=== PATIENT | male | born 1985 | race African-American/Black ===

== ENCOUNTER → 2018-10-08 17:48 | Outpatient (CLI) | payer OTHER, SELFPAY ==
--- NOTE | 2018-10-08 | DI.MRI.S_ITS ---
PROCEDURE: MR LUMBAR SPINE WO CON INDICATIONS: low back pain TECHNIQUE: Noncontrast sagittal T1 spin echo and T2 fast echo, sagittal STIR, axial T1 and T2 fast spin echo through the lumbar spine. In cases with scoliosis, additional coronal T2 fast spin echo may be performed. COMPARISON: None. FINDINGS: Image quality: Excellent. Alignment and Curvature: There are bilateral L4 pars defects with grade 1 anterolisthesis of L4 on L5 measuring 1.2 cm. The other vertebral bodies are normally aligned. Bone Marrow: Marrow is of normal overall signal. No acute vertebral body compression fractures. Spinal Cord: Conus medullaris terminates at the L1 level. Visualized cord demonstrates normal signal and size. Paraspinous Soft Tissues: No paravertebral masses. T12-L1: No canal stenosis, foraminal stenosis, or facet arthropathy L1-L2: Normal appearance. L2-L3: Normal appearance. L3-L4: There is posterior annulus tear plus left paracentral disc bulge. There is no canal stenosis. Disc material abuts the left L4 nerve root in the left lateral recess. Facet joints are unremarkable. L4-L5: Bilateral L4 pars defects with grade 1 anterolisthesis of L4 on L5, unroofing the L4-L5 disc. There is no central canal stenosis. There is severe narrowing of the bilateral foramina with impingement upon the bilateral L4 nerve roots in the foramina. L5-S1: Bilateral facet hypertrophy. No canal stenosis. Mild right foraminal stenosis. IMPRESSION: 1. At L4-L5, there are bilateral L4 pars defects with grade 1 anterolisthesis of L4 on L5. There is no canal stenosis. There is severe bilateral foraminal narrowing with impingement of the bilateral L4 nerve roots in the foramina. 2. At L3-L4, there is posterior annulus tear plus left paracentral disc bulge. Dictated by: Chriss Angel M.D. on 10/09/2018 at 8:08 Approved by: Chriss Angel M.D. on 10/09/2018 at 8:15
== END ==
PROVIDERS: Visit Provider Physician Assistant
DX: M51.26 Other intervertebral disc displacement, lumbar region (principal); M43.16 Spondylolisthesis, lumbar region; M48.061 Spinal stenosis, lumbar region without neurogenic claudication
CPT/HCPCS: 72148; 72158

== ENCOUNTER → 2020-10-05 14:28 | Outpatient (CLI) | payer OTHER, SELFPAY ==
[2020-10-05 15:43] LABS: Add Manual Diff / Slide Review NO; Basophils Absolute Auto 0 /uL (0-100); Basophils Percent Auto 0.7 % (0-2); Eosinophils Absolute Auto 300 /uL (0-450); Eosinophils Percent Auto 4.5 % (2-4); Hemoglobin 13.4 g/dL (13.5-17.5); Lymphocytes Absolute Auto 2500 /uL (1100-4500); Lymphocytes Percent Auto 37.9 % (25-40); Mean Corpuscular HGB Conc 32.6 % (30-36); Mean Corpuscular Hemoglobin 27.4 PG (26-34); Mean Corpuscular Volume 84.1 fL (80-100); Monocytes Absolute Auto 400 /uL (0-900); Neutrophils Absolute Auto 3300 /uL (1500-7000); Neutrophils Percent Auto 50.9 % (50-75); Platelet Count 343 X10^3/uL (150-400); Red Blood Cell Count 4.88 X10^6/uL (4.5-5.9); White Blood Cell Count 6.5 X10^3/uL (4.5-11.0)
[2020-10-05 15:53] LABS: BUN Creatinine Ratio 10.8 (6-22); Blood Urea Nitrogen 11 mg/dL (9-20); Calcium 9.6 mg/dL (8.4-10.2); Carbon Dioxide 28 mmol/L (22-32); Chloride 105 mmol/L (98-107); Estimated Glomerular Filt Rate > 60.0 mL/min (>60); Glucose 111 mg/dL (70-100); HEMOLYSIS < 15 (0-50); Potassium 3.9 mmol/L (3.4-5.1); Sodium 141 mmol/L (137-145)
== END ==
PROVIDERS: Referring Provider Orthopaedic Surgery Orthopaedic Surgery of the Spine; Visit Provider Orthopaedic Surgery Orthopaedic Surgery of the Spine
DX: Z01.812 Encounter for preprocedural laboratory examination (principal)
CPT/HCPCS: 36415; 80048; 85025

== ENCOUNTER → 2020-10-13 09:12 | Outpatient (CLI) | payer OTHER, SELFPAY ==
[2020-10-13 10:28] LABS: COVID19 -Nasal RAPID Negative (Negative)
== END ==
PROVIDERS: PCP Family Medicine; Referring Provider Physician Assistant; Visit Provider Physician Assistant
DX: Z20.822 Contact with and (suspected) exposure to COVID-19 (principal); Z01.812 Encounter for preprocedural laboratory examination
CPT/HCPCS: 87635

== ENCOUNTER 2020-10-15 10:28 | Day surgery (SDC) | payer OTHER, SELFPAY ==
[2020-10-12 08:31] VITALS: BMI 34.5
[2020-10-15] VITALS (14 sets, daily range): BP systolic 101–129; BP diastolic 56–88; PULSE 69–100; RESP 10–18; TEMP 35.7–36.5; O2SAT 92–99; BMI 34.5
--- NOTE | 2020-10-15 | DI.RAD.S_ITS ---
PROCEDURE: XR LUMBAR SPINE 2-3V INDICATIONS: L4-5 TLIF TECHNIQUE: 2 views of the lumbar spine were acquired. COMPARISON: [facility], CR, XR LUMBAR SPINE 2 OR 3 VIEWS, 07/17/2020, 15:27. FINDINGS: C-arm operative images demonstrate posterior/interbody fusion at the L4-L5 level with hardware and intervertebral disc spacer in expected position. Grade 1 spondylolisthesis present involving the L4 vertebral body over L5. IMPRESSION: C-arm images demonstrating posterior/interbody fusion L4-L5. Dictated by: Terry CRAIG Interpreted: Adriane Lamar MD on 10/15/2020 at 16:59 Transcribed by: GIA on 10/15/2020 at 17:00 Approved by: Adriane Lamar M.D. on 10/15/2020 at 17:11
[2020-10-15] MEDS: LACTATED RINGERS 1,000 ML 100 ML IV ×2 (11:10→14:43)
--- NOTE | 2020-10-15 12:55 | PM.PREOP ---
Pre-operative Note COVID-19 COVID-19 status: Negative Result date/Date tested (Pos, Neg/Pending): 10/13/20 Interval Note History & Physical reviewed/Exam performed by Physician: Yes Changes to H&P: No
[2020-10-15] MEDS: CEFAZOLIN 1 GM VIAL 2 GM IV ×2 (13:45→21:24)
--- NOTE | 2020-10-15 14:09 | SUR.OPER ---
Prone on spine table, head in foam head support, padded chest and pelvic supports, gel pad at knees, lower legs supported by pillows; nipples, genitalia and toes free of pressure, arms secured on foam padded arm boards at <90 degrees abduction. Tape over blanket at thigh secured to table.
[2020-10-15] MEDS: BUPIVACAINE LIPOSOME 266 MG/20 ML VIAL INJ (14:15)
[2020-10-15] MEDS: BUPIVACAINE 0.25% W/ EPI 30 ML VIAL INJ (14:16)
--- NOTE | 2020-10-15 16:16 | SUR.PREOP ---
1300 pts donnelly-toned wedding band placed in labeled container and placed with belongings
--- NOTE | 2020-10-15 16:56 | P.OP_ITS ---
Operative Date/Time/Diagnoses Date of procedure: 10/13/20 Time of procedure: 13:00 Pre-op diagnosis: 1. L4-5 spondylolisthesis 2. L4-5 spinal stenosis Post-op diagnosis: same Procedure & Clinicians Procedure: 1. L4-5 Postero-lateral and posterior interbody fusion 2. L4-5 interbody cage placement. 3. L4-5 decompressive laminectomy with bilateral facetecomies 4. L4-5 Posterior non-segmental instrumentation 5. [place] of bone marrow from iliac crest 6. Utilization of microsurgical technique and operating microscope Same procedure as scheduled: Yes Indications: Patient has been having chronic back pain and worsening lumbar radiculopathy. Patient failed multiple conservative management with worsening pain weakness and numbness in her lower extremity. Patient has been having difficulty performing activity of daily living. After discussing risks benefits of treatment options, patient elected proceed with surgery. Surgeon: Armond Fisher Avionics Integration Engineer: Ian Christianson Click Yes if Unassisted: No Anesthesia Type: General Operative Notes Closure Type: primary Specimen(s): none sent Prosthetic devices, grafts, tissues, transplants, or devices: Globus revolve screws. Rise cage Estimated Blood Loss (mL): 200 Blood products transfused: none Procedure in detail: Patient was seen in the preoperative area. Risks and benefits of the surgery was discussed with the patient. Informed consent was obtained from the patient and placed in the chart. Surgical site was marked. Patient was taken to the operative room. General anesthesia was administered. Prophylactic antibiotic was given to the patient less than 30 min before the incision was made. Patient was placed into a prone position on the Josh table. Patient's back was then prepped and draped in the sterile fashion. Time- out was performed at this time. Using AP and lateral C-arm imaging the interval between L4-5 was identified and marked on patient's back. A 2 inch incision 2 in from midline was made on the left side first. The fascia was incised in line with skin incision. Globus MARS retractors was placed inside the incision and docked onto the L4 lamina. Using microsurgical technique and operating microscope, a L4 laminectomy and L4-5 facetectomy was performed using a Kerrison rongeur. The disc space at L4-5 was identified. And a total diskectomy was performed at L4-5 level. The endplates were decorticated using a rasp and shaver. The total diskectomy and decortication was performed at L4-5 level in order to to accomplish a L4-5 fusion. The local bone from the laminectomy and facetectomy was saved for local bone grafting. After the total diskectomy and decortication was completed, Trifecta bone graft material was combined with local bone that was harvested earlier. At this time, a separate skin is incision was made over the iliac crest. A Jamshidi needle was inserted into the iliac crest through a separate skin incision. 5 cc of bone marrow aspiration was obtained through the separate skin incision using a Jamshidi needle from the iliac crest. The bone marrow aspiration was combined with local bone and the Trifecta bone grafting material. The bone grafting material was placed into the L4-5 interbody space along with a expandable cage. The cage was expanded to its maximum height using the torque limiting screwdriver. At this time a mirror image incision was made on the right side. The fascia was incised in line with the skin incision. Globus MARS retractor was inserted and docked onto the L4-5 posterolateral gutter. Using the power drill, posterior- lateral decortication was performed at L4-5 level until bleeding cortical bone was identified. The remaining bone grafting material was placed into the L4-5 posterior lateral gutter he order to accomplish posterolateral fusion at the L4- 5 level. Using the double C-arm technique, pedicle screws were placed into the L4-5 pedicles bilaterally. This was done by placing the Jamshidi needle into the pedicles, then placing the guidewires over the Jamshidi needle, and finally haim cing the cannulated screws over the guidewires bilaterally. After the pedicle screws were placed, 2 titanium rods was locked into the heads of the pedicle screws using locking caps and torque limiting screwdriver. Thready reducers was used to reduce the patient's spondylolisthesis. Partial reduction was able to be accomplished and hardware placed was stable. After all the hardware was placed, and confirmed with AP and lateral C-arm imaging, the wound was then irrigated with sterile normal saline and packed with Ray-Al gauze for 3 min to accomplish hemostasis. After the gauze was removed the deep fascia was closed with #1 Vicryl suture. The subcutaneous layer was closed with 2-0 Vicryl. The skin was closed with skin darnell. Patient tolerated the procedure well. There were no complications. Complications: none Post-operative Condition: stable Disposition: PACU Plan for aftercare: admit to inpatient hospital
[2020-10-15] MEDS: fentaNYL 100 MCG/2 ML INJ IV ×2 (17:41→17:45)
[2020-10-15] MEDS: OXYCODONE/ACETAMINOPHEN 5/325 TABLET 1 TAB PO (17:49)
[2020-10-15] MEDS: HYDROMORPHONE 2 MG INJ IV ×2 (17:56→18:03)
[2020-10-15] MEDS: SODIUM CHLORIDE 0.9% 1,000 ML 100 ML IV (18:50)
[2020-10-15] MEDS: hydrOXYzine pamoate 25 MG CAPSULE PO (19:05)
[2020-10-15] MEDS: HYDROMORPHONE 0.5 MG INJ IV ×2 (19:05→21:24)
[2020-10-15] MEDS: OXYCODONE IR 5 MG TABLET 10 MG PO (20:49)
[2020-10-15] MEDS: SENNOSIDES 8.6 MG TABLET 17.2 MG PO (20:49)
[2020-10-15] MEDS: DOCUSATE 100 MG CAPSULE PO (20:49)
[2020-10-16 00:30] VITALS: BP 116/74; PULSE 78; RESP 18; TEMP 36.3; O2SAT 97
[2020-10-16] MEDS: OXYCODONE IR 5 MG TABLET 10 MG PO ×3 (01:02→08:21)
[2020-10-16] MEDS: HYDROMORPHONE 0.5 MG INJ IV ×2 (01:35→06:29)
[2020-10-16] MEDS: MAG HYDROX/ALUM/SIMETH 30 ML UDC PO (02:09)
[2020-10-16] MEDS: ONDANSETRON 4 MG/2 ML INJ IV (02:25)
[2020-10-16] MEDS: ACETAMINOPHEN 325 MG TABLET 650 MG PO ×2 (02:55→09:41)
[2020-10-16] MEDS: hydrOXYzine pamoate 25 MG CAPSULE PO ×2 (02:55→08:21)
[2020-10-16 05:00] VITALS: BP 112/73; PULSE 85; RESP 16; TEMP 36.2; O2SAT 97
[2020-10-16] MEDS: SODIUM CHLORIDE 0.9% 1,000 ML 100 ML IV (05:11)
[2020-10-16] MEDS: CEFAZOLIN 1 GM VIAL 2 GM IV (06:03)
[2020-10-16 06:07] LABS: Hematocrit 37.5 % (41-53); Hemoglobin 12.3 g/dL (13.5-17.5)
--- NOTE | 2020-10-16 07:35 | P.DS_ITS ---
History of Present Illness History of Present Illness Date Patient Seen: 10/16/20 Time Patient Seen: 07:35 Chief complaint: Back pain Narrative: Patient states his pain is moderate to severe. Pain is currently well controlled with pain meds. Denies fever or chills. No nausea or vomiting. Patient has his home to assist him. Discharge Providers Provider Discharge Date: 10/16/20 Primary care physician: Miguel Angel Cosby MD Consults: 10/15/20 11:07 Consult to Respiratory Therapy Evaluate & Treat Comment: Physician Instructions: Evaluate and treat 10/15/20 18:25 Consult to Occupational Therapy Evaluate & Treat Comment: Physician Instructions: Evaluate and treat Consult to Physical Therapy Evaluate & Treat Comment: Physician Instructions: Evaluate and Treat Discharge provider: Serafin Beckett PA-C Summary Hospital Course Discharge Diagnosis: 1. L4-5 spondylolisthesis 2. L4-5 spinal stenosis Hospital Course: 1. L4-5 Postero-lateral and posterior interbody fusion 2. L4-5 interbody cage placement. 3. L4-5 decompressive laminectomy with bilateral facetecomies 4. L4-5 Posterior non-segmental instrumentation 5. [place] of bone marrow from iliac crest 6. Utilization of microsurgical technique and operating microscope Same procedure as scheduled: Yes Indications: Patient has been having chronic back pain and worsening lumbar radiculopathy. Patient failed multiple conservative management with worsening pain weakness and numbness in her lower extremity. Patient has been having difficulty performing activity of daily living. After discussing risks benefits of treatment options, patient elected proceed with surgery. Surgeon: Armond Fisher Consumer Electronics Merchandiser: Ian Christianson Click Yes if Unassisted: No Anesthesia Type: General Patient admitted to the hospital for for the above-mentioned procedure. Patient consented to the same. Patient taken to the operating room yesterday October 13, 2020. Patient back in his room recovering well as in stable condition. Patient will be discharged home in stable condition today after physical therapy if safe for home environment. Exam Vital Signs (past 8 hours): - 10/16/20 00:30 10/16/20 05:00 Temperature 97.3 F L 97.1 F L Pulse Rate 78 85 Respiratory Rate 18 16 Blood Pressure 116/74 112/73 Pulse Oximetry 97 97 Oxygen Delivery Method Room Air Oxygen Flow Rate 0 Narrative Exam Narrative: Pleasant 35-year-old male walking back from the bathroom to his bed. Patient is no apparent distress. Lumbar dressing is Clean, dry, intact.. Neurovascular status is intact bilateral lower extremities. Objective Labs Result Diagrams: 10/16/20 05:43 Labs: Laboratory Results - last 24 hr 10/16/20 05:43 Hgb 12.3 L Hct 37.5 L PFSH Medical History Anxiety Depression GERD (gastroesophageal reflux disease) IBRAHIMA on CPAP Spinal stenosis of lumbosacral region Spondylolisthesis Surgical History Hx of nasal septoplasty Social History household members: spouse and children Smoking Status: Never smoker alcohol intake: current Discharge Assessment & Plan Assessment and Plan Assessment: Patient progressing as expected Plan of Treatment: Mobilize with physical therapy. Limit bending, twisting, lifting. Discharge home today in stable condition after physical therapy if safe for home environment. Discharge Plan Discharge Plan Patient Disposition: Home Discharge orders & Medications Discharge Orders: Discharge (Order); Ordered 10/16/20 Ordered By: Serafin Beckett Prescriptions: New acetaminophen 325 mg Tablet 650 mg PO Q6HR PRN (Reason: Pain, Mild (1-3)) Qty: 60 RF: 0 docusate sodium [DOK] 100 mg Capsule 100 mg PO BID Qty: 20 RF: 0 oxycodone 5 mg Tablet 10 mg PO Q3HR PRN (Reason: Pain, Severe (7-10)) Qty: 60 RF: 0 hydroxyzine pamoate 25 mg Capsule 25 mg PO Q4HR PRN (Reason: Nausea And Vomiting) Qty: 40 RF: 0 Continued pantoprazole [Protonix] 40 mg Tablet,Delayed Release (Dr/Ec) 40 mg PO DAILY RF: 0 bupropion HCl [Wellbutrin XL] 300 mg Tablet Extended Release 24 Hr 300 mg PO QAM RF: 0 Discontinued naproxen 500 mg Tablet 500 mg PO BID RF: 0 Follow up/Referrals: Armond Fisher MD [Physician] - (2 weeks) Miguel Angel Cosby MD [Primary Care Provider] - Diet/Activity/Treatments Diet: Diet as Tolerated Activity: Limit bending, twisting, lifting Skin/Wound/Dressing Care Report to your healthcare provider any signs of infection, such as:: chills, fever, increased pain, unusual drainage and unusual redness Dressing: Keep dressing clean and dry Visit Report/Discharge Packet Instructions: DI for Transforaminal Lumbar Interbody Fusion Stand Alone Forms: Surgery Discharge Discharge Data Primary Care Provider: Miguel Angel Cosby Attending Provider: Armond Fisher VTE Deep Vein Thrombosis/Pulmonary Embolism Present on Admission: No
[2020-10-16 08:16] VITALS: BP 112/67; PULSE 80; RESP 16; TEMP 36.2; O2SAT 98
[2020-10-16] MEDS: DOCUSATE 100 MG CAPSULE PO (08:21)
[2020-10-16] MEDS: buPROPion XL 150 MG TAB 300 MG PO (08:22)
[2020-10-16] MEDS: PANTOPRAZOLE DR 40 MG TABLET PO (08:22)
--- NOTE | 2020-10-16 09:31 | CM.DANOTE ---
DCP: Case received, EMR reviewed and met with patient. Introduced self and role. Was able to obtain information regarding patient's baseline activity status prior to surgery. DCP assessment completed with information currently available. Patient is a 35 year old male who admitted yesterday morning to the care of the orthopedic team. PCP: Dr. Cosby. Payer: confirmed: [employer]. Patient came to the hospital for a surgical procedure. He had a translaminar interbody fusion/laminotomy. Patient has history of spinal stenosis/spondylolisthesis. Met with patient in his room. Prior to visit, he was walking independently with P.T. in the hallways. 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 He receives care from his primary care provider at [facility]. He resides in [place] with his spouse, Sebastien, who will be able to assist him when he goes home. P: Patient is to be discharged home today with support. Bing Townsend RN/Dog Food Dough Mixer
--- NOTE | 2020-10-16 09:33 | PT.IIE ---
Current Diagnoses Spondylolisthesis, lumbar region (10/15/20) Spinal stenosis, lumbosacral region (10/15/20) Surgery Performed Operation Date: 10/15/20 13:15 Actual Procedures p L4-5 TLIF - Armond Fisher MD Medical History (Last Reviewed 10/16/20 @ 07:37 by Serafin Beckett PA-C) Anxiety Depression GERD (gastroesophageal reflux disease) IBRAHIMA on CPAP Spinal stenosis of lumbosacral region Spondylolisthesis Physical Therapy Inpatient Evaluation/Re-Eval M1 PT/OT-IP Prior Functional Status Start: 10/16/20 08:13 Freq: NEEDED Status: Active Protocol: Document 10/16/20 08:35 HH (Rec: 10/16/20 09:33 [id number]) Medical Review Prior Functional Status Medical History Reviewed Yes Diet/Fluid Consistency Regular Communication no deficits noted Mobility and Gait reports of LBP for 8 years, difficulty with prolonged sitting, standing and walking d/t pain. limited trunk movements as he stated. independent for mobility without AD Activities of Daily Living and IADL's independent for all ADLs and IADLs. Social History Household Members spouse,children Living Arrangements House Number of Floors (Floors) Two Floors Number of Stairs To Enter/Railing? 2 GAYLE to front entrance, no GAYLE from garage entrance. 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 Pt lives with and a year old and 2yo children. M2 PT-IP Current Condition Start: 10/16/20 08:13 Freq: NEEDED Status: Active Protocol: Document 10/16/20 08:35 HH (Rec: 10/16/20 09:33 [id number]) Physical Therapy Current Condition Current Condition Evaluation Date 10/16/20 Treatment Diagnosis L4-L5 TLIF Onset Date 10/15/20 Precautions Lumbar Precautions Log Roll,No Twisting,Limit Bending,Lifting Restriction of 10 lbs,Gait Belt above Incisional Area Weight Bearing Status Weight Bearing Status Weight Bear as Tolerated M3 PT-IP Subjective Start: 10/16/20 08:13 Freq: NEEDED Status: Active Protocol: Document 10/16/20 08:35 HH (Rec: 10/16/20 09:33 [id number]) Subjective Physical Therapy Visit Type Type Initial Evaluation Visit Start Time 08:35 Visit Stop Time 09:15 Total Visit Minutes 40 Number of DEPARTMENT MGR Visits 0 Physical Therapy Visit Comments Patient Comments Krista been getting in and out of the bathroom without walker Patient Goals to return home Therapy Pain Assessment Pain When Pain Assessed During Weight Bearing Pain Present Pain Present Pain Reported Location back Intensity 7 Scale Used Numeric (0 - 10) Description Aching,Acute Pain Management Techniques Timing of Activity with Medications M4 PT-IP Mobility and Gait Start: 10/16/20 08:13 Freq: NEEDED Status: Active Protocol: Document 10/16/20 08:35 HH (Rec: 10/16/20 09:33 [id number]) PT-Bed Mobility Assessment Rolling Type of Rolling Log Rolling,Roll to Right Level of Assist Independent Scooting Scooting to Edge of Bed Independent PT-Transfer Assessment Sit to and From Stand Sit to and from Stand Independent,Use of Upper Extremities Equipment Transfer Assistive Device None,Gait Belt Orthotic/Prosthetic Devices or Brace: No Transfers Transfer Destination Bed,Chair Transfer Technique Stand Step Pivot Transfer Ability Level of Assist Independent Comments Mobility Comments pt was in bed upon PT arrival. AxOx4. Pt was able to recall all post op precautions. He initially completed log roll to right and able to push off from bed to sit up after. He then stood up from bedside without AD. Pt then proceeded to amb to hallway without AD. His gait was stable with with short steps to minimize his trunk movement. Pt completed 2 laps [facility] and 2 flight of 10 steps with R rail to ascend. Pt was safe and steady and no c/o with increase pain. Pt then went back to the room and sat in bedside chair. call light placed within reach. Gait Assessment Gait Gait Assistance Required: Standby Assistance Distance (Feet) 450 Able to Maintain Weight Bearing Status Yes During Gait Assistive Devices Assistive Device Gait Belt Orthotic/Prosthetic Devices or Brace: No Gait Deviations General Gait Pattern Decreased Stride Length, Decreased Feet Clearance Factors Limiting Gait Function Factors Limiting Gait Function Decreased Activity Tolerance, Decreased Strength,Limited Range of Motion,Pain,Poor Balance Comments Gait Comments see mobility section Stair Climbing Assessment Evaluation Level of Assist On Stairs Standby Assistance Devices Stair Climbing Assistive Devices Right Railing Technique/Endurance Stair Climbing Direction Ascend and Descend Stair Climbing Technique Step Over Step Number of Steps Climbed 10 Query Text: Stair Climbing Set # Repetitions (reps) 2 PT-Balance Assessment Sitting Balance and Reactions Static Sitting Balance Ability Normal Dynamic Sitting Balance Ability Normal Standing Balance and Reactions Static Standing Balance Ability Normal Dynamic Standing Balance Ability Normal Device Used none M5 PT-IP Objective Assessments Start: 10/16/20 08:13 Freq: NEEDED Status: Active Protocol: Document 10/16/20 08:35 (Rec: 10/16/20 09:33 [id number]) Orientation Orientation/Cognition Level of Alertness Alert Orientation Name,Age,Birthday,Month,Date, Year,Day of Week,Place, Situation Language Function Ability No Deficits Noted Safety Awareness Understands Safety Issues Memory Description No Deficits Noted Gross Range of Motion Upper Extremity ROM Assessment Within Functional Limits Lower Extremity ROM Assessment Within Functional Limits Strength Upper Extremity Strength Assessment Within Functional Limits Sensation Assessment Sensation Gross Sensation WNL Muscle Tone Muscle Tone WNL Yes M6 PT-IP Treatment Start: 10/16/20 08:13 Freq: NEEDED Status: Active Protocol: Document 10/16/20 08:35 (Rec: 10/16/20 09:33 [id number]) Physical Therapy Treatment Education Education Provided Precautions,Weight Bearing Status,Post-Op Packet,Safety M7 PT-IP Assessment and Plan Start: 10/16/20 08:13 Freq: NEEDED Status: Active Protocol: Document 10/16/20 08:35 (Rec: 10/16/20 09:33 [id number]) PT Summary Assessment and Plan Potential Rehabilitation Potential Excellent Status of Condition at Evaluation Stable Summary Impairments Pain,ROM,Strength,Balance,Bed Mobility,Transfers,Gait, Activity Tolerance Progress Towards Goals Safe For Discharge Assessment Summary pt is a 35 yo male s/p POD1 L4 -5 TLIF . PLOF= IND but with pain for prolonged sitting, standing and walking. Upon assessment, pt is mostly IND without the need of AD. He is well aware of post op precautions and able to follow them. He is steady with his gait and stair climbing, therefore, he is safe to DC home with family at this point . Frequency of Treatment Frequency Of Treatment Discharge Precautions Lumbar Precautions Log Roll,No Twisting,Limit Bending,Lifting Restriction of 10 lbs,Gait Belt above Incisional Area Recommendations To Nursing Amount of Assist Needed Standby Assistance Discharge Recommendations PT Discharge Recommendations Home with Assistance Transportation Needs at Discharge Private Vehicle
--- NOTE | 2020-10-16 09:45 | OT.IP.EVAL ---
Current Diagnoses Spondylolisthesis, lumbar region (10/15/20) Spinal stenosis, lumbosacral region (10/15/20) Surgery Performed Operation Date: 10/15/20 13:15 Actual Procedures p L4-5 TLIF - Armond Fisher MD Past Medical History (Last Reviewed 10/16/20 @ 07:37 by Serafin Beckett PA-C) Anxiety Depression GERD (gastroesophageal reflux disease) Hx of nasal septoplasty IBRAHIMA on CPAP Spinal stenosis of lumbosacral region Spondylolisthesis Surgical History (Last Reviewed 10/16/20 @ 07:37 by Serafin Beckett PA-C) Hx of nasal septoplasty Occupational Therapy Inpatient Evaluation/Re-Eval M1 PT/OT-IP Prior Functional Status Start: 10/16/20 12:52 Freq: NEEDED Status: Active Protocol: Document 10/16/20 09:30 [facility] (Rec: 10/16/20 13:09 [facility] [id number]) Medical Review Prior Functional Status Medical History Reviewed Yes Diet/Fluid Consistency Regular Communication no deficits noted Mobility and Gait reports of LBP for 8 years, difficulty with prolonged sitting, standing and walking d/t pain. limited trunk movements as he stated. independent for mobility without AD Activities of Daily Living and IADL's independent for all ADLs and IADLs. Social History Household Members spouse,children Living Arrangements House Number of Floors (Floors) Two Floors Number of Stairs To Enter/Railing? 2 GAYLE to front entrance, no GAYLE from garage entrance. 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 Pt lives with and a year old and 2yo children. M2 OT-IP Current Condition Start: 10/16/20 12:52 Freq: Status: Active Protocol: Document 10/16/20 09:30 [facility] (Rec: 10/16/20 13:09 [facility] [id number]) Occupational Therapy Current Condition Current Condition Evaluation Date 10/16/20 Treatment Diagnosis S/p L4-5 TLIF Diagnosis Onset Date 10/15/20 Post Operative Precautions Lumbar Precautions Log Roll,No Twisting,Limit Bending,Lifting Restriction of 10 lbs,Gait Belt above Incisional Area M3 OT- IP Subjective and Pain Start: 10/16/20 12:52 Freq: Status: Active Protocol: Document 10/16/20 09:30 [facility] (Rec: 10/16/20 13:09 [facility] [id number]) OT- Subjective Occupational Therapy Visit Type Type Initial Evaluation Visit Start Time 09:30 Visit Stop Time 09:45 Total Visit Minutes 15 Occupational Therapy Visit Comments Patient Comments Pt agreed to do OT and get dressed. Patient/Caregiver Goals TO go home. OT Pain Assessment Pain When Pain Assessed During Mobility Pain Present Pain Present Pain Reported Location back Intensity 5 M4 OT- IP ADL's Start: 10/16/20 12:52 Freq: Status: Active Protocol: Document 10/16/20 09:30 [facility] (Rec: 10/16/20 13:09 [facility] [id number]) OT [id number] General Evaluation Self-Feeding Ability Independent OT ADL-Grooming General Evaluation Grooming Ability Independent OT ADL-Oral Care Comments Oral Care Comments Educated either spit into a cup or hinge at his hips to spit to best follow his back precautions. OT ADL-Dressing General Eval Lower Body Dressing Ability Minimal Assistance Comments OT Dressing Comments Able to issue and show pt LB dressing equipment and then able use data technician and sock aid to get dressed along with use of shoe horn to help put on his shoes. Pt just needing assist to tie his shoes. OT ADL-Toileting Comments OT Toileting Comments Pt educated to lean to wipe or director of strategic marketing order to best follow his back precautions. OT ADL-Bathing Comments OT Bathing Comments Pt states to shower at home. Suggested shower chair and to be present initially. M5 OT- IP IADL's Start: 10/16/20 12:52 Freq: Status: Active Protocol: Document 10/16/20 09:30 [facility] (Rec: 10/16/20 13:09 [facility] [id number]) OT-Instrumental Activities of Daily Living Home Safety Awareness Home Safety Comments Pt aware that he is a little groggy and that his will assist him with his needs. Meal Preparation Meal Preparation Caregiver Provides Assist Fly Setter Fly Setter Caregiver Provides Assist M6 OT- IP Functional Cognition Start: 10/16/20 12:52 Freq: Status: Active Protocol: Document 10/16/20 09:30 [facility] (Rec: 10/16/20 13:09 [facility] [id number]) Cognitive Factors Limiting Selfcare Function Cognitive Ability Level of Alertness Alert Patient Orientation Name,Place,Situation Attention Span Ability Capable of Focused Attention, Capable of Sustained Attention Ability to Follow Commands Able to Follow One Step Commands Memory Description No Deficits Noted Safety Awareness Decreased Recall of Precautions,Decreased Ability to Apply Precautions, Underestimates Need for Assistance Cognitive Comments Cognitive Assessment Comments Pt a little groggy and having difficulty to recall his back precautions and tends to be a little impulsive and needing cues to slow down. OT- Vision and Hearing OT- Hearing Assessment OT- Hearing Assessment WFL M7 OT- IP Mobility and Balance Start: 10/16/20 12:52 Freq: Status: Active Protocol: Document 10/16/20 09:30 [facility] (Rec: 10/16/20 13:09 [facility] [id number]) OT-Transfer Assessment Sit to and From Stand Sit to and from Stand Standby Assistance Transfers Transfer Ability Standby Assistance Technique Transfer Destination Chair Transfer Technique Stand Step Pivot Devices Transfer Assistive Devices Gait Belt OT- Gait Assessment Comments Gait Ability Comments SBA without a device in the room, may need FWW for distance. OT- Balance Assessment Sitting Balance and Reactions Static Sitting Balance Ability Normal Dynamic Sitting Balance Ability Good Standing Balance and Reactions Static Standing Balance Ability Fair M9 OT- IP Assessment and Plan Start: 10/16/20 12:52 Freq: Status: Active Protocol: Document 10/16/20 09:30 [facility] (Rec: 10/16/20 13:09 [facility] [id number]) OT Summary Assessment and Plan Potential Rehabilitation Potential Good Analytic Complexity at Evaluation Low Summary OT Impairments Pain,Functional Mobility, Dressing,Toileting,Bathing, Toilet Transfers,Shower Transfers Progress Towards Goals Progressing Toward Goals Assessment Summary Pt low complexity and main barriers are steps, pain and to some assist for ADL and functional mobility. Pt to go home with to assist when medically stable. Goals Dressing Goal Independent Toileting Goal Independent Bathing Goal Independent Toilet Transfer Goal Independent Shower Transfer Goal Independent Days to Meet Goals 1 Frequency of Treatment Frequency Of Treatment Once a Day Treatment Plan OT Treatment Plan ADL Training,Functional Mobility,Patient/Family Education,Discharge Planning Discharge Recommendations OT Discharge Recommendations Home with Assistance Home Equipment Needs shower chair Transportation Needs at Discharge Private Vehicle
--- NOTE | 2020-10-16 11:31 | PC.NURSE ---
Discharge note: Pt was up walking with PT this morning; did not require use of walker. Pain improved after tylenol/oxycodone and vistaril. Able to eat and drink this morning. No nausea. Suzanne ROBERTS changed dressing to back incision. Able to urinate this morning without difficulty. Ortho PA evaluated pt this morning. Discharging home. Discharge packet reviewed with patient including education re: opiate use safety, instructed to not drive while taking pain meds and hydroxyzine, reinforced activity instructions including log rolling to get out of bed and no bending/twisting and lifting. REviewed stroke signs and symptoms and to call 911 if experiencing any of those symptoms, reviewed signs and symptoms of infection. Reviewed meds to continue at home as well as to discontinue Naproxen at home. Educated re: increased risk of constipation due to pain meds and importance of adequate oral intake. Instructed pt to keep dressing clean,dry and intact. All belongings sent home with patient. Co worker driving patient home. IV discontinued by Suzanne ROBERTS. Pt wheeled to car by Suzanne Roberts in wheelchair.
== END 2020-10-16 11:45 | disposition home or self-care (01) ==
LOC: OR 10:29 → AC 10:29
PROVIDERS: PCP Family Medicine; Referring Provider Orthopaedic Surgery Adult Reconstructive Orthopaedic Surgery; Visit Provider Orthopaedic Surgery Orthopaedic Surgery of the Spine
PROC: (CPT 22633; principal; 2020-10-15 13:15)
DX: M43.16 Spondylolisthesis, lumbar region (principal); M48.061 Spinal stenosis, lumbar region without neurogenic claudication; K21.9 Gastro-esophageal reflux disease without esophagitis
CPT/HCPCS: 22633; 22853; 20939; 22840; 63047; 36415; 72100; 76000; 85014; 85018; 97161; 97165; 97535; C1776; C9290; J0690; J1100; J1170; J2250; J2405; J2704; J3010

== ENCOUNTER → 2020-12-31 08:18 | Outpatient (CLI) | payer OTHER, SELFPAY ==
[2020-10-15 18:39] VITALS: BMI 34.5
[2020-12-31 12:30] LABS: COVID19 -Nasal RAPID Negative (Negative)
== END ==
PROVIDERS: PCP Family Medicine; Referring Provider Physician Assistant; Visit Provider Physician Assistant
DX: Z20.822 Contact with and (suspected) exposure to COVID-19 (principal); Z01.812 Encounter for preprocedural laboratory examination
CPT/HCPCS: 87635

== ENCOUNTER 2021-01-01 12:25 | Day surgery (SDC) | payer OTHER, SELFPAY ==
[2020-10-15 18:39] VITALS: BMI 34.5
--- NOTE | 2021-01-01 | PATH_ITS ---
[facility] Accession Number: [id number] . 01 Material submitted: . PART A: duodenum - DUODENUM BIOPSY PART B: stomach - ANTRUM BIOPSY . 02 Diagnosis: A. Duodenum, Biopsy: Small bowel mucosa with no diagnostic abnormality. Negative for active inflammation, features of sprue, dysplasia, or malignancy. . B. Stomach, Antrum, Biopsy: Antral mucosa with mild chronic gastritis. Negative for Helicobacter by immunohistochemistry. Negative for intestinal metaplasia. Negative for dysplasia and malignancy. . V 01/07/2021 1352 Local . 02 Electronically signed: . Fabiola Alves MD, Pathologist NPI- [id number] . 01 Gross description: . Part A: DUODENUM BIOPSY: Received in formalin is 1 fragment(s) of mcgowan, soft tissue measuring 0.3 x 0.2 x 0.2 cm submitted entirely in 1 cassette(s) Part B: ANTRUM BIOPSY: Received in formalin is 1 fragment(s) of mcgowan, soft tissue measuring 0.1 x 0.1 x 0.1 cm submitted entirely in 1 cassette(s) /[facility] 01/02/2021 1437 Local . 02 Microscopic: . B. An immunohistochemical stain was performed to evaluate for Helicobacter organisms and is negative. The control stain showed appropriate reactivity. . * This test was developed and its performance characteristics determined by [facility]. It has not been cleared or approved by the U.S. Food and Drug Administration. The FDA has determined that such clearance or approval is not necessary. This test is used for clinical purposes. It should not be regarded as investigational or for research. . 02 Pathologist provided ICD-10: R10.13 . 02 CPT . 403988, 099266, D58683 Performed at: 01 [facility] [address] [place] [address], [place], [place] [id number] MD Chetan Brewer MD Phone: [phone] Performed at: [address] [place] [id number] [place], [place] [id number] MD Fabiola Alves MD Phone: [phone]
[2021-01-01 12:47] VITALS: BP 119/75; PULSE 63; RESP 16; TEMP 36.6; O2SAT 98; BMI 34.0
[2021-01-01] MEDS: SODIUM CHLORIDE 0.9% 1,000 ML 84 ML IV (13:26)
--- NOTE | 2021-01-01 13:41 | P.HP_ITS ---
History of Present Illness History of Present Illness Date Patient Seen: 01/01/21 Time Patient Seen: 13:41 Chief complaint: EGD W/POSS BX Narrative: I reviewed Dr. Dang's note from November 28. No significant changes. Patient History Medical History Anxiety Depression GERD (gastroesophageal reflux disease) IBRAHIMA on CPAP Spinal stenosis of lumbosacral region Spondylolisthesis Surgical History Hx of nasal septoplasty Family & Social History Social History: household members spouse,children Tobacco & Substance use: Smoking Status Never smoker alcohol intake current alcohol intake frequency a few times a week Substance Use Type does not use Meds Home Medications and Allergies Home Medications Medication Instructions Recorded Confirmed Type bupropion HCl 300 mg 24 hr tablet, 300 mg PO QAM 10/12/20 01/01/21 History extended release (Wellbutrin XL) pantoprazole 40 mg tablet,delayed 40 mg PO DAILY 10/12/20 01/01/21 History release (Protonix) naproxen 500 mg tablet 500 mg PO BID PRN 01/01/21 01/01/21 History Allergies Allergy/AdvReac Type Severity Reaction Status Date / Time silver Allergy Mild Skin Verified 10/15/20 10:48 irritation, topical Review of Systems Review of Systems ROS: Yes All systems reviewed with the patient and are negative except as otherwise documented Exam Vital Signs (past 8 hours): - 01/01/21 12:47 Temperature 97.9 F Pulse Rate 63 Respiratory Rate 16 Blood Pressure 119/75 Pulse Oximetry 98 Oxygen Delivery Method Room Air Const General: cooperative and comfortable Orientation: alert [facility] Head: normocephalic Ears: external ears normal Nose: external nose normal Face and sinus: normal facial exam Mouth: oral mucosae normal Eyes General: appearance normal, both eyes and all related structures Neck Neck: normal visual inspection Chest Chest: normal inspection of the chest Resp Effort & Inspection: normal respiratory effort Cardio Rate: regular rate GI Inspection: normal to inspection Skin General: no rashes or lesions noted and No jaundice Neuro General: patient alert and moves all extremities Cognition: normal cognition Speech: speech normal Extrem General: no pedal edema Psych Appearance: grossly normal Assessment & Plan Assessment & Plan narrative: 10+ years of intermittent solid food dysphagia. Refractory reflux symptoms. EGD is planned for today. Time Spent With Patient Critical Care time: I spent a total of [] minutes of critical care time on this patient's care today; this time is exclusive of procedural time.
--- NOTE | 2021-01-01 13:44 | PM.PREOP ---
Pre-operative Note COVID-19 COVID-19 status: Negative Result date/Date tested (Pos, Neg/Pending): 12/31/20 Interval Note History & Physical reviewed/Exam performed by Physician: Yes Changes to H&P: No ASA Class (for procedural sedation): II
--- NOTE | 2021-01-01 13:56 | PM.OP.EGD ---
Operative Date/Time/Diagnoses Time of procedure: 13:56 Pre-op diagnosis: Dysphagia refractory GERD Post-op diagnosis: same Procedure & Clinicians Study performed: EGD with biopsies Same procedure as scheduled: Yes Indications: Dysphagia refractory GERD Surgeon: Senthil Simms Procedure Notes SCOAP/Timeout: Done Procedure in detail: After the risks and benefits were explained, written and verbal informed consent was obtained. The patient was brought into the procedure room and placed into the left lateral decubitus position. Please see nurse tablet tester notes for sedation details. The scope was introduced into the mouth through the bite block and advanced under direct visualization to the 2nd portion of the duodenum. The scope was slowly withdrawn carefully examining the mucosa for any defects or lesions. Retroflexed views were accomplished in the stomach. The stomach was decompressed, the scope was then removed from the patient who tolerated the procedure well. Sedation minutes: 8 Complications: none Impression: 1. Duodenum: There some patchy areas of what appeared to be denuded mildly inflamed mucosa. These were in the 2nd portion. Again I suspect this may be related to naproxen induced injury but her biopsy was taken for histopathologic analysis. Otherwise no ulcers no large pathology in the duodenum 2. Stomach: Patient had streaky erythema in the antrum with some subtle erosive features probably related to ongoing NSAID therapy. No large ulcers no outlet obstruction. Retroflexed views of the LES disclosed a sliding hiatal hernia with obvious Gee's erosions. Antral biopsies were acquired for exclusion of Helicobacter pylori infection. 3. Esophagus: The GE junction was at approximately 35 cm from the incisors. The diaphragmatic hiatus was at about 39 cm from the incisors. Patient had evidence of more than 75% of the luminal circumference involved in the inflammatory process at the GE junction consistent with LA grade D erosive esophagitis. Photographs were taken. The esophagus was a little tortuous as a function of the moderate-sized hiatal hernia no additional esophageal pathology appreciated. Endoscopic diagnosis 1. LA grade D erosive esophagitis 2. 5 cm hiatal hernia 3. Gee's erosions 4. Erosive gastroduodenitis a 3 Post-procedure Plan for aftercare: 1. Await histopathology 2. Increase pantoprazole to twice daily 3. Repeat EGD in 3 months time. If at that time the esophagitis is sufficiently healed and yet there is ongoing dysphagia I think at that point midesophageal biopsies for evaluation of the eosinophil count would be quite reasonable. Disposition: PACU
[2021-01-01 14:01] VITALS: BP 122/57; PULSE 60; RESP 12; TEMP 36.2; O2SAT 99
[2021-01-01 14:07] VITALS: BP 106/47; PULSE 71; RESP 14; TEMP 36.3; O2SAT 99
[2021-01-01 14:15] VITALS: BP 98/77; PULSE 70; RESP 14; O2SAT 98
[2021-01-01 14:18] VITALS: BP 110/77; PULSE 62; RESP 14; TEMP 36.1; O2SAT 99
== END 2021-01-01 15:20 | disposition home or self-care (01) ==
PROVIDERS: PCP Family Medicine; Referring Provider Internal Medicine Gastroenterology; Visit Provider Internal Medicine Gastroenterology
PROC: 0DJ08ZZ Inspection of Upper Intestinal Tract, Via Natural or Artificial Opening Endoscopic (ICD-10-PCS; CPT 43235; principal; 2021-01-01 14:00)
DX: R13.10 Dysphagia, unspecified (principal); G47.33 Obstructive sleep apnea (adult) (pediatric); F41.9 Anxiety disorder, unspecified; F32.9 Major depressive disorder, single episode, unspecified; K44.9 Diaphragmatic hernia without obstruction or gangrene; K29.90 Gastroduodenitis, unspecified, without bleeding; K29.50 Unspecified chronic gastritis without bleeding; K21.00 Gastro-esophageal reflux disease with esophagitis, without bleeding
CPT/HCPCS: 43239; J2704

== ENCOUNTER → 2021-01-10 09:00 | Outpatient (CLI) | payer OTHER, SELFPAY ==
[2020-10-15 18:39] VITALS: BMI 34.5
--- NOTE | 2021-01-10 09:03 | DI.RAD.S_ITS ---
PROCEDURE: FL SHOULDER INJECTION MR/CT RT INDICATIONS: Primary osteoarthritis, right shoulder COMPARISON: [facility], MR, MR SHOULDER RT W CON, 01/10/2021, 10:05. TECHNIQUE: The indications, alternatives, benefits, risks, and complications of the procedure were explained to the patient. Written informed consent was obtained and placed in the chart. The shoulder was examined fluoroscopically and a site for needle placement chosen for entry into the glenohumeral joint from an anterior approach. The skin was prepped and draped in a sterile fashion, and 1% lidocaine infiltrated from skin down to joint capsule. A spinal needle was inserted into the glenohumeral joint, and a small amount of iodinated contrast media injected to confirm intra-articular placement of the needle tip. This was followed by approximately 12 mL dilute solution of a gadolinium containing MR contrast agent. The needle was removed and a dressing was applied. The patient was given postprocedural instructions and sent to the MR suite for MR imaging. FINDINGS: A single fluoroscopic spot image demonstrates intra-articular location of injected iodinated contrast. IMPRESSION: Successful fluoroscopically guided administration of dilute Gadolinium solution into the shoulder joint for MR arthrogram. Dictated by: Trey Almaguer M.D. on 01/11/2021 at 8:53 Approved by: Trey Almaguer M.D. on 01/11/2021 at 8:54
--- NOTE | 2021-01-10 09:04 | DI.MRI.S_ITS ---
PROCEDURE: MR SHOULDER RT W CON INDICATIONS: Primary osteoarthritis, right shoulder TECHNIQUE: After the administration of 12 mL of dilute intra-articular Gadolinium contrast, oblique coronal T1 and T2 spin echo with fat saturation, oblique sagittal T1 spin echo with and without fat saturation, oblique sagittal T2 fast spin echo with fat saturation, axial T1 spin echo with fat saturation through the shoulder. COMPARISON: None. FINDINGS: Image quality: Excellent. Rotator cuff: Tendinosis and low-grade articular and bursal surface partial thickness tear involving distal supraspinatus at its insertion on the humeral head is seen extending to musculotendinous junction. Distal infraspinatus tendinosis and low-grade articular surface partial-thickness tear is also noted at its insertion on the humeral head. Distal subscapularis tendinosis and low-grade intrasubstance partial-thickness tear involving superior to mid fibers are seen. No full-thickness rotator cuff tendon rupture. No rotator cuff muscle atrophy on sagittal images. Bones and bursae: No bone marrow contusions or fractures. [id number] acromioclavicular joint osteoarthritic changes are seen with downward osteophyte formation depressing the musculotendinous junction of supraspinatus. Capsule and soft tissues: There is focal area of signal abnormality, subtle contrast extension and contour irregularity involving superior anterior labrum at 12 to 1 o'clock position concerning for superior anterior labral tear. The glenohumeral ligaments appear intact. The long head of the biceps tendinosis and low-grade intrasubstance partial-thickness tear is seen. The rotator interval appears normal, without fibrosis. The coracohumeral ligament is of normal thickness. No intra-articular bodies. IMPRESSION: 1. Tendinosis and low-grade articular and bursal surface partial thickness tear involving distal supraspinatus extending to musculotendinous junction. Distal infraspinatus tendinosis and low-grade articular surface partial-thickness tear. Tendinosis and low-grade intrasubstance partial-thickness tear involving superior to mid fibers of distal subscapularis. 2. Proximal intra-articular portion of long head of biceps tendinosis and low-grade intrasubstance partial-thickness tear. 3. Mild to moderate acromioclavicular joint osteoarthritis. No fracture or dislocation. 4. Subtle signal abnormality and questionable contrast extension in superior anterior labrum at 12 to 1 o'clock position concerning for subtle superior anterior labral tear. Dictated by: Jakob Onofre M.D. on 01/10/2021 at 11:30 Approved by: Jakob Onofre M.D. on 01/10/2021 at 11:33
== END ==
PROVIDERS: PCP Family Medicine; Referring Provider Orthopaedic Surgery; Visit Provider Orthopaedic Surgery
DX: M19.011 Primary osteoarthritis, right shoulder (principal); M75.111 Incomplete rotator cuff tear or rupture of right shoulder, not specified as traumatic; S46.111A Strain of muscle, fascia and tendon of long head of biceps, right arm, initial encounter
CPT/HCPCS: 23350; 73222; 77002

== ENCOUNTER 2021-07-12 14:57 | Emergency (ER) | payer OTHER, SELFPAY ==
[2020-10-15 18:39] VITALS: BMI 34.5
[2021-07-12 15:11] VITALS: BP 131/63; PULSE 95; RESP 16; TEMP 36.4; O2SAT 98; BMI 34.7
--- NOTE | 2021-07-12 15:17 | DI.RAD.S_ITS ---
PROCEDURE: XR CHEST 1V INDICATIONS: chest pain TECHNIQUE: One view of the chest was acquired. COMPARISON: None. FINDINGS: Surgical changes and devices: None. Lungs and pleura: Lungs are clear. No pleural effusions or pneumothorax. Mediastinum: Mediastinal contours appear normal. Heart size is normal. Bones and chest wall: No suspicious bony lesions. Overlying soft tissues appear unremarkable. IMPRESSION: No acute pulmonary process. Dictated by: Adriane Lamar M.D. on 07/12/2021 at 16:09 Approved by: Adriane Lamar M.D. on 07/12/2021 at 16:10
[2021-07-12 16:02] LABS: Alanine Aminotransferase 46 IU/L (<50); Albumin 4.7 g/dL (3.5-5.0); Albumin Globulin Ratio 1.3 (1.0-2.8); Alkaline Phosphatase 61 U/L (38-126); Aspartate Aminotransferase 30 IU/L (17-59); BUN Creatinine Ratio 13.5 (6-22); Bilirubin Total 0.8 mg/dL (0.2-1.3); Blood Urea Nitrogen 13 mg/dL (9-20); Calcium 9.2 mg/dL (8.4-10.2); Carbon Dioxide 24 mmol/L (22-32); Chloride 103 mmol/L (98-107); Creatine Kinase 172 U/L (55-170); Estimated Glomerular Filt Rate > 60 mL/min (>60); Globulin 3.7 g/dL (1.7-4.1); Glucose 153 mg/dL (70-100); HEMOLYSIS < 15 (0-50); Lipase 62 U/L (23-300); Potassium 3.5 mmol/L (3.4-5.1); Sodium 139 mmol/L (137-145); Total Protein 8.4 g/dL (6.3-8.2)
[2021-07-12 16:05] LABS: Add Manual Diff / Slide Review NO; Basophils Absolute Auto 100 /uL (0-100); Basophils Percent Auto 1.1 % (0-2); Eosinophils Absolute Auto 200 /uL (0-450); Eosinophils Percent Auto 2.5 % (2-4); Hematocrit 39.2 % (41-53); Hemoglobin 13.1 g/dL (13.5-17.5); Lymphocytes Absolute Auto 3100 /uL (1100-4500); Lymphocytes Percent Auto 35.9 % (25-40); Mean Corpuscular HGB Conc 33.5 % (30-36); Mean Corpuscular Volume 77.7 fL (80-100); Monocytes Absolute Auto 500 /uL (0-900); Monocytes Percent Auto 6.2 % (3-14); Neutrophils Absolute Auto 4700 /uL (1500-7000); Neutrophils Percent Auto 54.3 % (50-75); Platelet Count 323 X10^3/uL (150-400); Red Blood Cell Count 5.04 X10^6/uL (4.5-5.9); Red Cell Distribution Width 14.5 % (11.6-14.8); White Blood Cell Count 8.7 X10^3/uL (4.5-11.0)
[2021-07-12 16:13] LABS: Troponin I < 0.012 ng/mL (0.01-0.034)
[2021-07-12 16:17] LABS: CKMB % Relative Index 0.4 % (1.5-5.0); Creatine Kinase MB 0.63 ng/mL (<2.37)
[2021-07-12 17:50] VITALS: BP 137/95; PULSE 65; RESP 16; O2SAT 99
[2021-07-12] MEDS: PANTOPRAZOLE DR 20 MG TABLET PO (18:32)
[2021-07-12] MEDS: MAG HYDROX/ALUM/SIMETH 30 ML UDC PO (18:33)
[2021-07-12] MEDS: LIDOCAINE VISCOUS 2% 15 ML SOLUTION PO (18:33)
--- NOTE | 2021-07-12 19:12 | ED.CHESTPAIN ---
HPI - Chest Pain <Rafael Marie PA-C - Last Filed: 07/12/21 20:52> General Chief Complaint: Chest Pain Stated Complaint: PAIN LEFT RIB CAGE PAIN CHEST LEFT SIDE Time Seen by Provider: 07/12/21 17:54 Mode of arrival: Family Vehicle History of Present Illness HPI narrative: This is a 36-year-old male presents to the emergency department due to left upper abdominal pain for the last 3 days. States he has a chronic history of GERD. States that it feels like a ?throbbing? pain to his left upper abdominal area. Patient has been taking his pantoprazole as prescribed. Denies any nausea, vomiting, diarrhea, chest pain, blood in the stool, shortness of breath or any other concerning signs or symptoms. Does state that he has been increasing his alcohol intake to approximately 1 large bottle of [place] beer that is approximately 3% alcohol a day Related Data Home Medications Medication Instructions Recorded Confirmed bupropion HCl 300 mg 24 hr tablet, 300 mg PO QAM 10/12/20 01/01/21 extended release (Wellbutrin XL) pantoprazole 40 mg tablet,delayed 40 mg PO DAILY 10/12/20 01/01/21 release (Protonix) naproxen 500 mg tablet 500 mg PO BID PRN 01/01/21 01/01/21 Previous Rx's Medication Instructions Recorded pantoprazole 40 mg tablet,delayed 40 mg PO BID 10 Days #20 tab 07/12/21 release (Protonix) Allergies Allergy/AdvReac Type Severity Reaction Status Date / Time silver Allergy Mild Skin Verified 07/12/21 15:15 irritation, topical Review of Systems <Rafael Marie PA-C - Last Filed: 07/12/21 20:52> Review of Systems Narrative: Positive for left upper abdominal pain Denies any nausea, vomiting, diarrhea, chest pain, blood in the stool, shortness of breath Patient History <Rafael Marie PA-C - Last Filed: 07/12/21 20:52> Medical History Anxiety Depression GERD (gastroesophageal reflux disease) IBRAHIMA on CPAP Spinal stenosis of lumbosacral region Spondylolisthesis Surgical History Hx of nasal septoplasty Social History household members: spouse and children Smoking Status: Never smoker alcohol intake: current Smoking Status: Never smoker alcohol intake frequency: 0-2 drinks per day Substance Use Type: does not use Exam <Rafael Marie PA-C - Last Filed: 07/12/21 20:52> Narrative Exam Narrative: GENERAL: Well-developed patient, in mild distress. HEAD: Atraumatic. Normocephalic. EYES: Pupils equal round and reactive. Extraocular motions intact. No scleral icterus. No injection or drainage. ENT: Nose without bleeding, purulent drainage. Throat without erythema, tonsillar hypertrophy or exudate. Airway patent. NECK: Trachea midline. Non tender CARDIOVASCULAR: Regular rate and rhythm without murmurs, gallops, or rubs. RESPIRATORY: Clear to auscultation. Breath sounds equal bilaterally. No wheezes, rales, or rhonchi. GASTROINTESTINAL: Abdomen soft, mild tenderness palpation to left upper quadrant EXTREMITIES: No edema or joint tenderness. BACK: Nontender without deformity or crepitance. No flank tenderness. NEURO: AOx3. SKIN: No rash or erythema of visible areas Initial Vital Signs Initial Vital Signs: Vital Signs Temperature 97.6 F 07/12/21 15:11 Pulse Rate 95 H 07/12/21 15:11 Respiratory Rate 16 07/12/21 15:11 Blood Pressure 131/63 07/12/21 15:11 Pulse Oximetry 98 07/12/21 15:11 <Eryn Coppola DO - Last Filed: 07/13/21 09:02> Initial Vital Signs Initial Vital Signs: Vital Signs Temperature 97.6 F 07/12/21 15:11 Pulse Rate 95 H 07/12/21 15:11 Respiratory Rate 16 07/12/21 15:11 Blood Pressure 131/63 07/12/21 15:11 Pulse Oximetry 98 07/12/21 15:11 Course <Rafael Marie PA-C - Last Filed: 07/12/21 20:52> Orders Ordered: Discontinued Medications Al Hydrox/Mg Hydrox/Simethicone (Mag Hydrox/Alum/Simeth 30 Ml Udc) 30 ml PO NOW ONE Stop: 07/12/21 18:20 Last Admin: 07/12/21 18:33 Dose: 30 ml Documented by: CHINTAN Lidocaine HCl (Lidocaine Viscous 2% 15 Ml Solution) 15 ml PO NOW ONE Stop: 07/12/21 18:20 Last Admin: 07/12/21 18:33 Dose: 15 ml Documented by: CHINTAN Pantoprazole Sodium (Pantoprazole Dr 20 Mg Tablet) 20 mg PO NOW ONE Stop: 07/12/21 18:20 Last Admin: 07/12/21 18:32 Dose: 20 mg Documented by: CHINTAN Reevaluation(s) Reevaluation #1: 1900: Patient reports abdominal pain had moderately improved. Vital Signs Vital signs: Vital Signs - 8 hr 07/12/21 15:11 07/12/21 17:50 Temperature 97.6 F Pulse Rate 95 H 65 Respiratory Rate 16 16 Blood Pressure 131/63 137/95 H Pulse Oximetry 98 99 <Eryn Coppola DO - Last Filed: 07/13/21 09:02> Orders Ordered: Discontinued Medications Al Hydrox/Mg Hydrox/Simethicone (Mag Hydrox/Alum/Simeth 30 Ml Udc) 30 ml PO NOW ONE Stop: 07/12/21 18:20 Last Admin: 07/12/21 18:33 Dose: 30 ml Documented by: CHINTAN Lidocaine HCl (Lidocaine Viscous 2% 15 Ml Solution) 15 ml PO NOW ONE Stop: 07/12/21 18:20 Last Admin: 07/12/21 18:33 Dose: 15 ml Documented by: CHINTAN Pantoprazole Sodium (Pantoprazole Dr 20 Mg Tablet) 20 mg PO NOW ONE Stop: 07/12/21 18:20 Last Admin: 07/12/21 18:32 Dose: 20 mg Documented by: CHINTAN Vital Signs Vital signs: Vital Signs - 8 hr 07/12/21 15:11 07/12/21 17:50 Temperature 97.6 F Pulse Rate 95 H 65 Respiratory Rate 16 16 Blood Pressure 131/63 137/95 H Pulse Oximetry 98 99 MDM - Chest Pain <Rafael Marie PA-C - Last Filed: 07/12/21 20:52> Lab Data Result diagrams: 07/12/21 15:26 07/12/21 15:26 Labs: Lab Results 07/12/21 07/12/21 Range/Units 15:26 15:26 WBC 8.7 (4.5-11.0) X10^3/uL RBC 5.04 (4.5-5.9) X10^6/uL Hgb 13.1 L (13.5-17.5) g/dL Hct 39.2 L (41-53) % MCV 77.7 L (80-100) fL MCH 26.0 (26-34) PG MCHC 33.5 (30-36) % RDW 14.5 (11.6-14.8) % Plt Count 323 (150-400) X10^3/uL Neut % (Auto) 54.3 (50-75) % Lymph % (Auto) 35.9 (25-40) % [place] % (Auto) 6.2 (3-14) % Eos % (Auto) 2.5 (2-4) % Baso % (Auto) 1.1 (0-2) % Neut # (Auto) 4700 (4275-2197) /uL Lymph # (Auto) 3100 (0262-9043) /uL [place] # (Auto) 500 (0-900) /uL Eos # (Auto) 200 (0-450) /uL Baso # (Auto) 100 (0-100) /uL Sodium 139 (137-145) mmol/L Potassium 3.5 (3.4-5.1) mmol/L Chloride 103 (98-107) mmol/L Carbon Dioxide 24 (22-32) mmol/L BUN 13 (9-20) mg/dL Creatinine 0.96 (0.66-1.25) mg/dL Estimated GFR > 60 (>60) mL/min BUN/Creatinine Ratio 13.5 (6-22) Glucose 153 H (70-100) mg/dL Calcium 9.2 (8.4-10.2) mg/dL Magnesium 2.0 (1.6-2.3) mg/dL Total Bilirubin 0.8 (0.2-1.3) mg/dL AST 30 (17-59) IU/L ALT 46 (<50) IU/L Alkaline Phosphatase 61 (38-126) U/L Total Creatine Kinase 172 H (55-170) U/L CK-MB (CK-2) 0.63 (<2.37) ng/mL CK-MB (CK-2) Rel Index 0.4 L (1.5-5.0) % Troponin I < 0.012 (0.01-0.034) ng/mL Total Protein 8.4 H (6.3-8.2) g/dL Albumin 4.7 (3.5-5.0) g/dL Globulin 3.7 (1.7-4.1) g/dL Albumin/Globulin Ratio 1.3 (1.0-2.8) Lipase 62 (23-300) U/L ECG Data Interpretation: EKG is normal sinus rhythm rate 88 and free of any signs of ischemia or ectopy. No ST segmental elevation or depression. No T wave inversions MDM Narrative Medical decision making narrative: This is a 36-year-old male presents to the emergency department due to suspected flare-up of his chronic GERD. Lab work was unremarkable. No evidence of infection, lipase within normal range and low concern for acute pancreatitis. No GI bleeding reported to further investigate. Cardiac workup ordered during triage which was unremarkable. EKG showed no evidence of ACS. Chest x-ray showed no evidence of free air. Discharged with instructions to follow-up with established attending anesthesiologist and instructed to double up his proton pump inhibitor for refractory GERD. <Eryn Coppola, DO - Last Filed: 07/13/21 09:02> Lab Data Labs: Lab Results 07/12/21 07/12/21 Range/Units 15:26 15:26 WBC 8.7 (4.5-11.0) X10^3/uL RBC 5.04 (4.5-5.9) X10^6/uL Hgb 13.1 L (13.5-17.5) g/dL Hct 39.2 L (41-53) % MCV 77.7 L (80-100) fL MCH 26.0 (26-34) PG MCHC 33.5 (30-36) % RDW 14.5 (11.6-14.8) % Plt Count 323 (150-400) X10^3/uL Neut % (Auto) 54.3 (50-75) % Lymph % (Auto) 35.9 (25-40) % [place] % (Auto) 6.2 (3-14) % Eos % (Auto) 2.5 (2-4) % Baso % (Auto) 1.1 (0-2) % Neut # (Auto) 4700 (8217-6583) /uL Lymph # (Auto) 3100 (6018-1569) /uL [place] # (Auto) 500 (0-900) /uL Eos # (Auto) 200 (0-450) /uL Baso # (Auto) 100 (0-100) /uL Sodium 139 (137-145) mmol/L Potassium 3.5 (3.4-5.1) mmol/L Chloride 103 (98-107) mmol/L Carbon Dioxide 24 (22-32) mmol/L BUN 13 (9-20) mg/dL Creatinine 0.96 (0.66-1.25) mg/dL Estimated GFR > 60 (>60) mL/min BUN/Creatinine Ratio 13.5 (6-22) Glucose 153 H (70-100) mg/dL Calcium 9.2 (8.4-10.2) mg/dL Magnesium 2.0 (1.6-2.3) mg/dL Total Bilirubin 0.8 (0.2-1.3) mg/dL AST 30 (17-59) IU/L ALT 46 (<50) IU/L Alkaline Phosphatase 61 (38-126) U/L Total Creatine Kinase 172 H (55-170) U/L CK-MB (CK-2) 0.63 (<2.37) ng/mL CK-MB (CK-2) Rel Index 0.4 L (1.5-5.0) % Troponin I < 0.012 (0.01-0.034) ng/mL Total Protein 8.4 H (6.3-8.2) g/dL Albumin 4.7 (3.5-5.0) g/dL Globulin 3.7 (1.7-4.1) g/dL Albumin/Globulin Ratio 1.3 (1.0-2.8) Lipase 62 (23-300) U/L Imaging Data Chest x-ray: Radiologist's Impression: Signed Patient: Ramiro Loredo MR#: [id number] : 1985 Acct:[id number] Age/Sex: 36 / M Date of Service: 07/12/21 Loc: ED Accession Number: [id number] ?? Procedure: XR chest 1V Ordering Provider: Eryn Coppola D.O. PROCEDURE:? XR CHEST 1V ? INDICATIONS:? chest pain ? TECHNIQUE:? One view of the chest was acquired.? ? COMPARISON:? None. ? FINDINGS:? ? Surgical changes and devices:? None.? ? Lungs and pleura:? Lungs are clear.? No pleural effusions or pneumothorax.? ? Mediastinum:? Mediastinal contours appear normal.? Heart size is normal.? ? Bones and chest wall:? No suspicious bony lesions.? Overlying soft tissues appear unremarkable.? ? IMPRESSION:? No acute pulmonary process. ? ? Dictated by: Adriane Lamar M.D. on 07/12/2021 at 16:09 ? ? ECG Data Interpretation: EKG is normal sinus rhythm rate 88 and free of any signs of ischemia or ectopy. No ST segmental elevation or depression. No T wave inversions [place]-normal sinus rhythm rate 88 WA interval 160 QRS 98 QTC 423 Q-waves noted in inferior leads no ST changes no priors to compare no T-wave inversions Discharge Plan Departure Patient Disposition: Home Clinical Impression: Gastritis Instructions: [place] Diet, DI for Gastritis Activity Restrictions/Additional Instructions: Thank you for coming to the [facility] Emergency Department today. Your lab work shows no abnormalities. Your pancreas levels were within normal limits. I do not suspect this is a kidney stone at this time. I think this is a mild exacerbation of your chronic GERD. For now we will attempt doubling the Protonix that you have been prescribed. I recommend you follow-up with your attending anesthesiologist who performed the EGD for further management and evaluation as they may want to repeat this. All of your cardiac labs and workup was negative for heart abnormality as well. I hope you feel better soon. Prescriptions: New pantoprazole [Protonix] 40 mg tablet,delayed release (DR/EC) 40 mg PO BID 10 Days Qty: 20 0RF No Action naproxen 500 mg Tablet 500 mg PO BID PRN (Reason: Pain (Scale Score 1-3)) 0RF pantoprazole [Protonix] 40 mg Tablet,Delayed Release (Dr/Ec) 40 mg PO DAILY 0RF bupropion HCl [Wellbutrin XL] 300 mg Tablet Extended Release 24 Hr 300 mg PO QAM 0RF Referrals: Miguel Angel Cosby MD [Primary Care Provider] - <Eryn Coppola DO - Last Filed: 07/13/21 09:02> Cosign ED Attending Jeanetteature Attestation: I was immediately available in the department for consultation. Documentation has been reviewed. I agree with assessment and plan.
== END 2021-07-12 19:34 | disposition home or self-care (01) ==
PROVIDERS: Emergency Medicine; Emergency Provider Physician Assistant Medical; PCP Family Medicine
DX: K29.70 Gastritis, unspecified, without bleeding (principal); R07.9 Chest pain, unspecified
CPT/HCPCS: 36415; 71045; 80053; 82550; 82553; 83690; 83735; 84484; 85025; 93005; 93010; 99284